=== PATIENT | male | born 1945 | race Caucasian/White ===

== ENCOUNTER → 2017-03-01 | Outpatient (CLI) | payer MEDICARE ==
[~2017-03-01] MED LIST: ASPI1TAB57 PO; BABY81CH PO; IBUP1TAB5 PO; LISI2.5T55 PO; LOSA100T PO; ROSU20 PO; VALA1TAB PO
[2017-03-01 09:06] LABS: HEMATOCRIT 45.8 % (39.0-51.0); MEAN CELL VOLUME 88.1 FL (80.0-100.0); MEAN CORPUSCULAR HEMOGLOBIN 30.9 PG (27.0-34.0); MEAN CORPUSCULAR HGB CONC 35.1 % (32.0-36.0); PLATELET COUNT 248 TH/MM3 (150-450); RED CELL DISTRIBUTION WIDTH 13.4 % (11.6-17.2); REVIEW FLAG FINAL; WHITE BLOOD COUNT 7.5 TH/MM3 (4.0-11.0)
[2017-03-01 09:11] LABS: BLOOD, URINE NEG (NEG); COMMENT (UR) CULT NOT INDICATED; CULTURE IF INDICATED CULT NOT INDICATED; GLUCOSE,URINE NEG (NEG); KETONE, URINE NEG (NEG); NITRITE,URINE NEG (NEG); URINE COLOR LIGHT-YELLOW (YELLW/STRAW)
[2017-03-01 09:18] LABS: APTT (PATIENT) 27.9 SEC (24.3-30.1); INTERNATIONAL NORMALIZED RATIO 0.9 RATIO; PROTHROMBIN TIME - PATIENT 10.2 SEC (9.8-11.6)
[2017-03-01 09:53] LABS: BICARBONATE 27.9 MEQ/L (21.0-32.0)
[2017-03-01 10:00] LABS: POTASSIUM 4.2 MEQ/L (3.5-5.1)
--- NOTE | 2017-03-01 18:00 | EKG ---
Date Performed: 03/01/2017 Time Performed: 08:10:17 PTAGE: 71 years EKG: Sinus rhythm NONSPECIFIC T-WAVE ABNORMALITY BORDERLINE ECG PREVIOUS TRACING : 08/06/2008 08.06 DOCTOR: Juancarlos Simon Interpretating Date/Time 03/01/2017 17:58:07
== END ==
LOC: CPRE 07:36
PROVIDERS: ATTEND Orthopaedic Surgery
DX: Z01.812 Encounter for preprocedural laboratory examination (principal); Z01.810 Encounter for preprocedural cardiovascular examination; M17.12 Unilateral primary osteoarthritis, left knee; M79.609 Pain in unspecified limb; I10 Essential (primary) hypertension
CPT/HCPCS: 36415; 80048; 81001; 85027; 85610; 85730; 93005

== ENCOUNTER 2017-03-25 07:18 | Inpatient (IN) | payer MEDICARE ==
[~2017-03-25] VITALS: Ht 177.8 cm; Wt 93.2 kg
[~2017-03-25 07:18] MED LIST changes: -BABY81CH PO; -LISI2.5T55 PO; -ROSU20 PO; -VALA1TAB PO
[2017-03-25] MEDS ORDERED: INSULIN HUMAN REGULAR 1,000 UNITS/10 ML VIAL SQ PRN ×2 (07:45→08:00)
[2017-03-25] MEDS ORDERED: METOPROLOL TARTRATE 25 MG TAB PO PRN ×2 (07:45→08:00)
[2017-03-25] MEDS ORDERED: SODIUM CHLORID 0.9% 500 ML IV PRN ×2 (07:45→08:00)
[2017-03-25] MEDS ORDERED: POVIDONE IODINE 5% (ANTISEPSIS KIT) 4 APPLICATIONS EACH NARE PRN ×2 (07:45→08:00)
[2017-03-25] MEDS ORDERED: CHLORHEXIDINE GLUCONATE 2 % 1 PACK (2 CLOTHS) TOPICAL PRN ×2 (07:45→08:00)
[2017-03-25] MEDS ORDERED: LACTATED RINGER'S 1000 ML IV PRN ×2 (07:45→08:00)
[2017-03-25] MEDS ORDERED: CHLORHEXIDINE GLUCONATE 4% SOLN 120 ML BTL TOPICAL SCH (08:00)
[2017-03-25] MEDS ORDERED: ceFAZolin 2 GM PREMIX 50 ML IV SCH (08:00)
[2017-03-25] MEDS ORDERED: TRANEXAMIC ACID IV SCH ×5 (08:00→08:30)
[2017-03-25] MEDS ORDERED: SODIUM CHLORIDE 0.9% IV SCH ×5 (08:00→08:30)
[2017-03-25] MEDS ORDERED: EXPAREL PERI-ARTICULAR INJECTION (TOTAL VOL. 100 ML) P-ARTICULR SCH ×2 (08:00)
[2017-03-25] MEDS ORDERED: BUPIVACAINE LIPOSOME PF 1.3% 20 ML VIAL ONE (08:34)
[2017-03-25] MEDS ORDERED: VIAG25TA PO (08:37)
[2017-03-25] MEDS ORDERED: GENTAMICIN SULFATE 80 MG/2 ML VIAL ONE (09:09)
[2017-03-25] MEDS ORDERED: FAMOTIDINE 20 MG/2 ML VIAL ONE (09:33)
[2017-03-25] MEDS ORDERED: ACETAMINOPHEN 1000 MG/100 ML 100 ML IV ONE (09:34)
[2017-03-25] MEDS ORDERED: ZOLPIDEM TARTRATE 5 MG TAB PO PRN (10:00)
[2017-03-25] MEDS ORDERED: ONDANSETRON HCL 4 MG/2 ML VIAL IVP PRN (10:00)
[2017-03-25] MEDS ORDERED: MAGNESIUM HYDROXIDE SUSP 30 ML CUP PO PRN (10:00)
[2017-03-25] MEDS ORDERED: ACETAMINOPHEN/HYDROcodone 325 MG/7.5 MG TAB PO PRN (10:00)
[2017-03-25] MEDS ORDERED: MORPHINE SULFATE 4 MG/ML INJ IV PUSH PRN (10:00)
--- NOTE | 2017-03-25 10:01 | HHI.FF ---
Face to Face Verification Diagnosis: (1) Status post total left knee replacement Physical Therapy Gait training Knee: Total knee, Protocol: Left, Gait training, Full weight bearing Left LE Weight Bearing: WB as tolerated Left LE Range of Motion: Active ROM (AROM, AAROM, PROM. ROM goal is 0 to 135 degrees.) Nursing Nursing: Dressing changes ((Dressing changes start on postop day 7.)) Dressing Changes: Daily dressing change ((Dressing changes start on postop day 7.)), Coverderm/Primapore Additional Instructions Remove steristrips on postop day 14. I have seen patient Dago Lundberg on 03/25/17. My clinical findings support the need for the requested home health care services because: Ltd mobility - disease progression Limited ability to care for self High risk of falls I certify that my clinical findings support that this patient is homebound because: Post-op weakness Unsteady gait/balance Unsafe to leave home unassisted Saurav Peña MD ([place]) Mar 25, 2017 10:01
--- NOTE | 2017-03-25 10:07 | HHI.PR ---
Immediate Post Op Note Procedure Date: Mar 25, 2017 Pre Op Diagnosis: (1) Primary osteoarthritis of left knee Post Op Diagnosis: (1) Primary osteoarthritis of left knee Surgeon: Roman Peña MD Technical Business Analyst(s): JON Gonzales Procedure: Left total knee arthroplasty with Audra Triathlon Prosthesis, uncemented. Findings: OA left knee Complications: 0 Specimen(s) removed: 0 Estimated blood loss: 250 ml. Anesthesia: Regional Block (Adductor canal block) Drains: Hemovac (2) IVF Patient to: PACU Patient Condition: Good Implant/Devices: SEE IMPLANT LOG (if applicable) Date/Time of Procedure: SEE SURGICAL CARE RECORD Saurav Peña MD ([place]) Mar 25, 2017 10:07
[2017-03-25] MEDS: TRANEXAMIC ACID INJ 930 MG in SODIUM CHLORIDE 0.9% INJ 100 ML IV SCH ×2 (11:35→14:24)
[2017-03-25] MEDS ORDERED: HYDR-3580 PO (12:52)
[2017-03-25] MEDS ORDERED: ECASA81 PO (12:52)
[2017-03-25] MEDS ORDERED: DO NOT ADM ANY ANTICOAGULANT DRUGS PRN (12:53)
[2017-03-25] MEDS ORDERED: Post-op Orders (for Pharmacy) MISC XX ONE (13:00)
[2017-03-25] MEDS: LACTATED RINGER'S 1000 ML INJ 1,000 ML IV SCH (14:24)
[2017-03-25] MEDS: KETOROLAC TROMETHAMINE 30 MG/ML (IVP) VIAL IVP SCH ×3 (14:27→22:21)
--- NOTE | 2017-03-25 14:45 | RADRPT ---
EXAM DATE/TIME: 03/25/2017 13:10 [place] COMPARISON: No previous studies available for comparison. INDICATIONS : Post op left knee surgery. MEDICAL HISTORY : none known SURGICAL HISTORY : none known ENCOUNTER: Initial ACUITY: 1 day PAIN SCORE: 0/10 LOCATION: Left knee FINDINGS: AP and lateral views of the left knee demonstrate changes consistent with recent total knee arthropla sty with metallic hardware in place in the distal femur and proximal tibia. There is a metallic bermudez lar component. There is soft tissue gas present, as expected. A surgical drain is in place. CONCLUSION: Expected changes following recent left total knee arthroplasty. Stan Jones MD on March 25, 2017 at 14:33 Board Certified Radiologist. This report was verified electronically.
--- NOTE | 2017-03-25 14:48 | PD.CONS ---
HPI Service [facility] Hospitalists Consult Requested By Primary Care Physician Sander Pineda MD Diagnoses: History of Present Illness Mr. Lundberg is a 71 year old male. He is here in the hospital related to having a left total knee arthroplasty earlier today. I am seeing him post op and he is doing well thus far. He has HTN at baseline and Osteoarthritis. No other medical conditions reported. Review of Systems Constitutional: DENIES: Fatigue, Fever, Chills Eyes: DENIES: Diplopia, Eye inflammation, Eye pain Ears, nose, mouth, throat: DENIES: Hearing loss, Vertigo, Nasal discharge Respiratory: DENIES: Cough, Wheezing, Shortness of breath Cardiovascular: DENIES: Chest pain, Palpitations, Syncope Gastrointestinal: DENIES: Abdominal pain, Black stools, Bloody stools Musculoskeletal: COMPLAINS OF: Joint pain, Stiffness, DENIES: Muscle aches Integumentary: DENIES: Abnormal pigmentation, Nail changes, Pruritus, Rash Hematologic/lymphatic: DENIES: Bruising, Lymphadenopathy Immunologic/allergic: DENIES: Eczema, Urticaria Neurologic: DENIES: Abnormal gait, Headache, Paresthesias Psychiatric: DENIES: Anxiety, Confusion, Hallucinations Past Family Social History Allergies: Coded Allergies: No Known Allergies (Verified Allergy, Unknown, 03/25/17) Past Medical History HTN OA ED Past Surgical History Hemorrhoid Surgery Reported Medications Reported Meds & Active Scripts Active Hydrocodone-Acetamin 7.5-325 (Hydrocodone/Acetaminophen) 7.5 Mg-325 Mg Tablet 1 Tab PO Q4H PRN Reported Viagra (Sildenafil Citrate) 25 Mg Tab Unknown Dose PO DIRECTED PRN Ibuprofen 400 Mg Tab 400 Mg PO Q4H PRN Losartan (Losartan Potassium) 100 Mg Tab 100 Mg PO DAILY Aspirin 81 (Aspirin) 81 Mg Tabdr 81 Mg PO DAILY Active Ordered Medications Administered Medications Medications (Trade) Dose Ordered Sig/Carlos Route PRN Reason Start Time Stop Time Status Last Admin Dose Admin Lactated Ringer's 1,000 ml @ 30 mls/hr Q24H PRN IV SEE LABEL COMMENTS 03/25/17 07:45 03/28/17 07:44 03/25/17 08:45 Povidone Iodine (Betadine 5% Antisepsis Kit) 1 applic MEDICAL SURGICAL TECH PRN EACH NARE SEE LABEL COMMENTS 03/25/17 07:45 03/28/17 07:44 03/25/17 08:44 Chlorhexidine Gluconate (Chlorhexidine 2% Cloth) 3 pack MEDICAL SURGICAL TECH PRN TOPICAL SEE LABEL COMMENTS 03/25/17 07:45 03/28/17 07:44 03/25/17 07:30 Chlorhexidine Gluconate (Hibiclens 4% Top Soln) 1 applic ONCE TOPICAL 03/25/17 08:00 03/28/17 07:59 03/25/17 08:44 Cefazolin Sodium/ Dextrose 50 ml @ 100 mls/hr MEDICAL SURGICAL TECH IV 03/25/17 08:00 03/28/17 07:59 03/25/17 11:34 Bupivacaine Liposome 20 ml/ Sodium Chloride 100 ml @ 200 mls/hr ONCE P-ARTICULR 03/25/17 08:00 03/26/17 07:59 03/25/17 11:36 Lactated Ringer's 1,000 ml @ 80 mls/hr [id number] IV 03/25/17 09:54 03/25/17 14:24 Ketorolac Tromethamine (Toradol Inj) 15 mg Q6H IVP 03/25/17 10:00 03/27/17 04:01 03/25/17 14:27 Tranexamic Acid 930 mg/Sodium Chloride 109.3 ml @ 200 mls/hr UNSCH IV 03/25/17 10:00 03/25/17 16:00 03/25/17 14:24 Family History CVA and CAD in father COPD in mother Social History Occasional Alcohol use No nicotine use No illicit drug abuse Physical Exam Vital Signs Vital Signs Date Time Temp Pulse Resp B/P (MAP) Pulse Ox O2 Delivery O2 Flow Rate FiO2 03/25/17 14:30 65 14 156/83 (107) 99 Nasal Cannula 2 03/25/17 14:00 97.6 60 13 149/86 (107) 98 Nasal Cannula 2 03/25/17 13:45 66 18 150/89 (109) 100 Nasal Cannula 2 03/25/17 13:30 64 17 144/92 (109) 99 Nasal Cannula 2 03/25/17 13:15 63 12 146/86 (106) 99 Nasal Cannula 2 03/25/17 13:00 75 13 148/87 (107) 96 Nasal Cannula 2 03/25/17 12:55 97.5 77 20 157/91 (113) 98 Nasal Cannula 2 03/25/17 08:39 97.9 66 20 180/99 (509) 98 Physical Exam GENERAL: NAD, A&Ox3 HEAD: Normocephalic. NECK: Supple, trachea midline. No lymphadenopathy. EYES: No scleral icterus. No injection or drainage. CARDIOVASCULAR: Regular rate and rhythm without murmurs, gallops, or rubs. RESPIRATORY: Breath sounds equal bilaterally. No accessory muscle use. GASTROINTESTINAL: Abdomen soft, non-tender, nondistended. MUSCULOSKELETAL: No cyanosis, or edema. Left knee bandaged and in mobilizer. SKIN: Warm and dry. NEURO: No focal neurological deficitis. Assessment and Plan Problem List: (1) Primary osteoarthritis of left knee ICD Code: M17.12 - Unilateral primary osteoarthritis, left knee (2) Status post total left knee replacement ICD Code: Z96.652 - Presence of left artificial knee joint Assessment and Plan Assessment and Plan 71 year old male admitted for a left knee total arthroplasty Status post left knee replacement Osteoarthritis PRN pain treatments Ortho following PT planned Follow CBC HTN Resume baseline treatments Follow BP Adjust if needed Steve Ybarra MD Mar 25, 2017 14:48
[2017-03-25 15:15] VITALS: BP 151/79; PULSE 67; RESP 17; TEMP 96; O2SAT 94
--- NOTE | 2017-03-25 16:35 | MP ---
cc: Kimberli CANTOR. DATE OF SURGERY 03/25/2017 PREOPERATIVE DIAGNOSIS Primary osteoarthritis left knee. POSTOPERATIVE DIAGNOSIS Primary osteoarthritis left knee. OPERATION PERFORMED Left total knee arthroplasty with Pony Triathlon prosthesis (uncemented). SURGEON Annita Cantor MD ANESTHESIA Spinal with supplemental adductor canal block and local. INDICATIONS AND FINDINGS This 71-year-old man has a 7-month history of progressively worsening left knee pain in spite of nonsurgical treatment. His activities of daily living including position changes and standing from a seated position, ascending and descending stairs and the like and have become more painful and more difficult. This is in spite of the use of nonsteroidal anti-inflammatory agents, analgesics, activity modification exercises, intra-articular corticosteroid injections and ambulatory aids. Physical findings show genu varum with some limitation of motion, crepitation on motion and tenderness, some laxity in the medial compartment. X-rays show loss of articular cartilage to virtually [id number] with subchondral sclerosis and osteophytes. Operative findings are consistent with the radiographic findings with loss of articular cartilage to exposed subchondral bone in the medial compartment, somewhat less in the patellofemoral and lateral compartments. Osteophytes were noted. The prosthesis used was a Audra Triathlon prosthesis with the femur being a size 7 left uncemented, the tibia being a titanium baseplate size 7 with a 9 mm cruciate-retaining spacer of x-ray polyethylene. The patella was a size 38 mm asymmetric tritanium backed patella. PROCEDURE The patient was brought to the operating room and a regional anesthetic was administered using an adductor canal block followed by a spinal anesthetic. He was then placed in the supine position on the operating table in the clean-air operating room. He received prophylactic antibiotic in the form of Ancef and also received tranexamic acid. The knee was then prepped with alcohol, Hibiclens and Chloraprep and draped in the usual manner with the knee draped free. An appropriate time-out procedure was carried out. An incision was made from about three fingerbreadths above the superior medial pole of patella down to the tibial tubercle on the medial side. The incision was deepened through subcutaneous tissues to the retinacular structures which were exposed medially and laterally. A medial retinacular incision was made from the superior and middle pole of patella down to the tibia tubercle and up into the quadriceps tendon splitting it longitudinally in the medial one-third. Patella was reflected. The infrapatellar fat pad was debulked. Medial and lateral dissection was carried out. Fenestrations were made in the distal femur and proximal tibia for intramedullary referencing guides. The distal femoral cutting guide and jig were assembled for a 5 degrees 8-mm cut. This was then stabilized with pins. The jig was removed. The distal femoral cut was completed with the oscillating saw. A sizing guide was then positioned on the femur. the above-noted size for the femur. A 4-in-1 cutting block was positioned in place. Anterior and posterior cuts were made followed by posterior and anterior chamfer cuts. Osteophytes were trimmed. Medial and lateral meniscectomies were completed as was the resection of anterior cruciate ligament. The proximal tibial cutting guide and jig were then positioned in place and assembled in the appropriate position. This was stabilized for rotation with a pin. The proximal tibial cutting guide was stabilized and depth of cut verified with a stylus. The proximal tibial cut was then completed with the oscillating saw after making appropriate adjustments. The spacer block was then used to determine that this was an adequate and appropriate cut. The cutting blocks were removed. Exparel was injected about the posterior aspect of the knee. Medial and lateral meniscectomies were completed. The tibial baseplate trial was positioned in place for a size 7 tibia. The femoral component trial was positioned in place. The knee was taken through a range of motion and positioning of the tibia was carried out and stabilized with pins. The patella drill guide was positioned and drill holes made for the patella. A size 38 mm asymmetric patella trial was positioned into place. The knee was taken through a range of motion which was easily 0 degrees extension to 145 degrees of flexion. Stability was excellent in both positions. The femoral drill holes were made. The patella and femoral trials were removed. The tibial bone plug and femoral bone plugs were placed. The tibial punch was impacted through its guide. The tibial drill guide was positioned in place and drill holes made. After removal of the instruments, the knee was irrigated well with lactated Ringer's solution. The tibial component was impacted into place and seated appropriately, followed by the spacer. The femoral component was then impacted into place. The patella was positioned in place and seated appropriately with the patella vice. The knee was taken through a range of motion which was easily 0 degrees extension to 145 degrees of flexion. Drains were brought out the superolateral aspect of the suprapatellar pouch. The remainder of the Exparel was injected throughout the knee. The knee was then closed in layers using 0 Vicryl interrupted [id number] suture for retinacular and capsular structures, 2-0 Vicryl interrupted simple sutures with buried knots for the subcutaneous tissues and 3-0 Monocryl barbed suture for the skin. The wound was then dressed with Steri-Strips followed by an Optifoam silver impregnated dressing, sterile Sof-Rol, cooling pad and Enoch bandages. The patient was transferred from the operating room to the recovery room in satisfactory position having tolerated the procedure well. Counts were correct. Specimens none. Estimated blood loss 250 mL. MD SYEDA Lance/ANUP /12:53 PM /4:08 PM
--- NOTE | 2017-03-25 18:06 | HHI.PR ---
Subjective Remarks NOT SEEN Objective Vitals Vital Signs Date Time Temp Pulse Resp B/P (MAP) Pulse Ox O2 Delivery O2 Flow Rate FiO2 03/25/17 16:00 20 03/25/17 15:15 96.0 67 17 151/79 (103) 94 03/25/17 15:07 Room Air 03/25/17 14:55 59 17 158/90 (112) 99 Room Air 03/25/17 14:30 65 14 156/83 (107) 99 Nasal Cannula 2 03/25/17 14:00 97.6 60 13 149/86 (107) 98 Nasal Cannula 2 03/25/17 13:45 66 18 150/89 (109) 100 Nasal Cannula 2 03/25/17 13:30 64 17 144/92 (109) 99 Nasal Cannula 2 03/25/17 13:15 63 12 146/86 (106) 99 Nasal Cannula 2 03/25/17 13:00 75 13 148/87 (107) 96 Nasal Cannula 2 03/25/17 12:55 97.5 77 20 157/91 (113) 98 Nasal Cannula 2 03/25/17 08:39 97.9 66 20 180/99 (126) 98 I/O 03/24/17 03/24/17 03/24/17 03/25/17 03/25/17 03/25/17 07:00 15:00 23:00 07:00 15:00 23:00 Intake Total 1529 ml Output Total 300 ml Balance 1229 ml Intake Oral 20 ml IV Total 109 ml Other 1400 ml Output Drainage Total 100 ml Estimated Blood Loss 200 ml Imaging Last Impressions Knee X-Ray 03/25/17 0954 Signed Impressions: Service Date/Time: Saturday, March 25, 2017 13:10 - CONCLUSION: Expected changes following recent left total knee arthroplasty. Stan Jones MD Objective Remarks GENERAL: NAD, A&Ox3 HEAD: Normocephalic. NECK: Supple, trachea midline. No lymphadenopathy. EYES: No scleral icterus. No injection or drainage. CARDIOVASCULAR: Regular rate and rhythm without murmurs, gallops, or rubs. RESPIRATORY: Breath sounds equal bilaterally. No accessory muscle use. GASTROINTESTINAL: Abdomen soft, non-tender, nondistended. MUSCULOSKELETAL: No cyanosis, or edema. Left knee bandaged and in mobilizer. SKIN: Warm and dry. NEURO: No focal neurological deficitis. A/P Problem List: (1) Primary osteoarthritis of left knee ICD Code: M17.12 - Unilateral primary osteoarthritis, left knee (2) Status post total left knee replacement ICD Code: Z96.652 - Presence of left artificial knee joint Assessment and Plan 71 year old male admitted for a left knee total arthroplasty Status post left knee replacement Osteoarthritis PRN pain treatments Ortho following PT planned Follow CBC HTN Resume baseline treatments Follow BP Adjust if needed Malcolm Michael MD Mar 25, 2017 18:06
[2017-03-25 20:50] VITALS: BP 137/79; PULSE 89; RESP 17; TEMP 97.8; O2SAT 94
[2017-03-26 00:25] VITALS: BP 158/87; PULSE 80; RESP 16; TEMP 97.6; O2SAT 97
[2017-03-26] MEDS: KETOROLAC TROMETHAMINE 30 MG/ML (IVP) VIAL IVP SCH ×2 (03:29→09:53)
[2017-03-26 04:00] VITALS: BP 153/75; PULSE 89; RESP 17; TEMP 98.1; O2SAT 99
[2017-03-26 05:48] LABS: HEMATOCRIT 37.6 % (39.0-51.0); MEAN CELL VOLUME 88.6 FL (80.0-100.0); MEAN CORPUSCULAR HEMOGLOBIN 30.1 PG (27.0-34.0); PLATELET COUNT 223 TH/MM3 (150-450); RED BLOOD COUNT 4.24 MIL/MM3 (4.50-5.90); RED CELL DISTRIBUTION WIDTH 13.5 % (11.6-17.2); REVIEW FLAG FINAL; WHITE BLOOD COUNT 11.9 TH/MM3 (4.0-11.0)
[2017-03-26 06:13] LABS: BICARBONATE 28.1 MEQ/L (21.0-32.0)
[2017-03-26 07:37] VITALS: BP 152/77; PULSE 78; RESP 18; TEMP 97.8; O2SAT 97
--- NOTE | 2017-03-26 08:07 | PD.ORT.PN ---
Subjective Post Op Day #: 1 Subjective Remarks He is doing well. He indicates that his pain level is the same as it was preoperatively. He is very encouraged by this. He is able to walk without much difficulty. Range of Motion -8 to 95 degrees. Distance Walked 80 feet with PT. Objective Vitals Vital Signs Date Time Temp Pulse Resp B/P (MAP) Pulse Ox O2 Delivery O2 Flow Rate FiO2 03/26/17 07:37 97.8 78 18 152/77 (102) 97 03/26/17 04:00 98.1 89 17 153/75 (101) 99 03/26/17 00:25 97.6 80 16 158/87 (110) 97 03/25/17 20:50 97.8 89 17 137/79 (98) 94 03/25/17 16:00 20 03/25/17 15:15 96.0 67 17 151/79 (103) 94 03/25/17 15:07 Room Air 03/25/17 14:55 59 17 158/90 (112) 99 Room Air 03/25/17 14:30 65 14 156/83 (107) 99 Nasal Cannula 2 03/25/17 14:00 97.6 60 13 149/86 (107) 98 Nasal Cannula 2 03/25/17 13:45 66 18 150/89 (109) 100 Nasal Cannula 2 03/25/17 13:30 64 17 144/92 (109) 99 Nasal Cannula 2 03/25/17 13:15 63 12 146/86 (106) 99 Nasal Cannula 2 03/25/17 13:00 75 13 148/87 (107) 96 Nasal Cannula 2 03/25/17 12:55 97.5 77 20 157/91 (113) 98 Nasal Cannula 2 03/25/17 08:39 97.9 66 20 180/99 (126) 98 I/O 03/25/17 03/25/17 03/25/17 03/26/17 03/26/17 03/26/17 07:00 15:00 23:00 07:00 15:00 23:00 Intake Total 1529 ml 822 ml 460 ml Output Total 300 ml 160 ml 110 ml Balance 1229 ml 662 ml 350 ml Intake Oral 20 ml 360 ml 360 ml IV Total 109 ml 462 ml 100 ml Other 1400 ml Output Drainage Total 100 ml 160 ml 110 ml Estimated Blood Loss 200 ml # Voids 1 1 # Bowel Movements 0 0 Result Diagram: 03/26/17 0455 03/26/17 0455 Imaging Last 24 hours Impressions Knee X-Ray 03/25/17 0954 Signed Impressions: Service Date/Time: Saturday, March 25, 2017 13:10 - CONCLUSION: Expected changes following recent left total knee arthroplasty. Stan Jones MD Objective Remarks He is sitting out of bed in the chair. The dressing is dry and intact. The neurovascular status is intact. There is not much drainage. Assessment & Plan Ortho Post Op Day #: 1 Problem List: (1) Status post total left knee replacement ICD Codes: Z96.652 - Presence of left artificial knee joint Plan: Continue postop care and PT. I have discussed with him and his the operative findings and the procedure carried out. We have discussed post hospital care. Assessment and Plan Condition: Good. Orthopedically stable. DVT prophylaxis: TEDs, aspirin, sequentials. Discharge plans: Home with home health care. An appointment was scheduled through the office. Prescriptions: [place] 7.5/325. Saurav Peña MD ([place]) Mar 26, 2017 08:07
[2017-03-26] MEDS ORDERED: LOSARTAN 50 MG TAB PO SCH (09:00)
[2017-03-26] MEDS: LACTATED RINGER'S 1000 ML INJ 1,000 ML IV SCH (09:54)
[2017-03-26] MEDS: ACETAMINOPHEN/HYDROcodone 325 MG/7.5 MG TAB PO PRN ×2 (10:03→13:38)
--- NOTE | 2017-03-26 10:07 | HHI.DS ---
Discharge Summary Admission Date Mar 25, 2017 at 07:18 Admitting Diagnosis Primary osteoarthritis, left knee. Diagnosis: (1) Status post total left knee replacement Diagnosis: Principal ICD Codes: Z96.652 - Presence of left artificial knee joint Procedures Left total knee arthroplasty with Striker Triathlon prosthesis, uncemented, 03/25 Brief History This is a 71 year old male patientwas admitted electively for a left total knee arthroplasty. His left knee has been giving him difficulty for an extended period time as detailed in the history and physical examination. He has tried nonsteroidal anti-inflammatory agents, analgesics, intra-articular corticosteroidsand external supports without much improvement. Physical findings showed significant laxity in the medial compartment with crepitation on motion and tenderness. X-rays showed loss of articular cartilage to bone on bone in the medial compartment with osteophytes in the medial, lateral and patellofemoral compartments. CBC/BMP: 03/26/17 0455 03/26/17 0455 Significant Findings Laboratory Tests Test 03/26/17 04:55 White Blood Count 11.9 TH/MM3 (4.0-11.0) Red Blood Count 4.24 MIL/MM3 (4.50-5.90) Hemoglobin 12.8 GM/DL (13.0-17.0) Hematocrit 37.6 % (39.0-51.0) Mean Platelet Volume 6.5 FL (7.0-11.0) Random Glucose 107 MG/DL (74-106) Calcium Level 8.2 MG/DL (8.5-10.1) Estimat Glomerular Filtration Rate 78 ML/MIN (>89) PE at Discharge He is sitting out of bed in the chair. The dressing is dry and intact. The neurovascular status is intact. There is not much drainage. Hospital Course The patient was admitted to the hospital on the above-noted date and had a left total knee arthroplasty carried out as detailed above. He tolerated the procedure well. He received prophylactic antibiotics in the form of Ancef preoperatively according to protocols and continued according to the protocols for the next day. He was placed into a continuous passive motion device in the postanesthesia care unit. He started physical therapy on the day of surgery.He was able to ambulate 80 feet without any difficulty with physical therapy.His range of motion is -8-95. Postoperative pain was consistent with his preoperative pain. Pt Condition on Discharge: Good Discharge Disposition: Disch w/ Home Health Serv Discharge Instructions Diet Instructions: As Tolerated, No Restrictions Activities You Can Perform: Full Weight Bearing, Shower/Bath Activities to Avoid: Lifting/Bending, Strenuous Activity, Bathing, Driving Follow up Referrals: Orthopedics with Saurav Peña MD ([place]) New Medications: Aspirin (Aspirin DR) 81 Mg Tabdr 81 MG PO BID for Prevent Blood Clot for 12 Days, #24 TAB Hydrocodone/Acetaminophen (Hydrocodone-Acetamin 7.5-325) 7.5 Mg-325 Mg Tablet 1 TAB PO Q4H PRN for PAIN SCALE 1 TO 10, #50 TAB Continued Medications: Ibuprofen (Ibuprofen) 400 Mg Tab 400 MG PO Q4H PRN for PAIN SCALE 1 TO 10, TAB 0 Refills Losartan (Losartan) 100 Mg Tab 100 MG PO DAILY for Blood Pressure Management, #30 TAB 0 Refills Sildenafil (Viagra) 25 Mg Tab Unknown Dose PO DIRECTED PRN for ERECTILE DYSFUNCTION, TAB 0 Refills Discontinued Medications: Aspirin (Aspirin 81) 81 Mg Tabdr 81 MG PO DAILY, TAB 0 Refills Saurav Peña MD ([place]) Mar 26, 2017 10:07
--- NOTE | 2017-03-26 11:53 | HHI.PR ---
Subjective Remarks Follow-up hypertension. Patient is doing well being discharged today. Lab results discussed with the patient including leukocytosis, anemia and hyperglycemia. Discussed with RN Objective Vitals Vital Signs Date Time Temp Pulse Resp B/P (MAP) Pulse Ox O2 Delivery O2 Flow Rate FiO2 03/26/17 07:37 97.8 78 18 152/77 (102) 97 03/26/17 04:00 98.1 89 17 153/75 (101) 99 03/26/17 00:25 97.6 80 16 158/87 (110) 97 03/25/17 20:50 97.8 89 17 137/79 (98) 94 03/25/17 16:00 20 03/25/17 15:15 96.0 67 17 151/79 (103) 94 03/25/17 15:07 Room Air 03/25/17 14:55 59 17 158/90 (112) 99 Room Air 03/25/17 14:30 65 14 156/83 (107) 99 Nasal Cannula 2 03/25/17 14:00 97.6 60 13 149/86 (107) 98 Nasal Cannula 2 03/25/17 13:45 66 18 150/89 (109) 100 Nasal Cannula 2 03/25/17 13:30 64 17 144/92 (109) 99 Nasal Cannula 2 03/25/17 13:15 63 12 146/86 (106) 99 Nasal Cannula 2 03/25/17 13:00 75 13 148/87 (107) 96 Nasal Cannula 2 03/25/17 12:55 97.5 77 20 157/91 (113) 98 Nasal Cannula 2 I/O 03/25/17 03/25/17 03/25/17 03/26/17 03/26/17 03/26/17 07:00 15:00 23:00 07:00 15:00 23:00 Intake Total 1529 ml 822 ml 460 ml Output Total 300 ml 160 ml 110 ml Balance 1229 ml 662 ml 350 ml Intake Oral 20 ml 360 ml 360 ml IV Total 109 ml 462 ml 100 ml Other 1400 ml Output Drainage Total 100 ml 160 ml 110 ml Estimated Blood Loss 200 ml # Voids 1 1 # Bowel Movements 0 0 Result Diagram: 03/26/17 0455 03/26/17 0455 Imaging Last Impressions Knee X-Ray 03/25/17 3804 Signed Impressions: Service Date/Time: Saturday, March 25, 2017 13:10 - CONCLUSION: Expected changes following recent left total knee arthroplasty. Stan Jones MD Objective Remarks GENERAL: NAD, A&Ox3 HEAD: Normocephalic. NECK: Supple, trachea midline. No lymphadenopathy. EYES: No scleral icterus. No injection or drainage. CARDIOVASCULAR: Regular rate and rhythm without murmurs, gallops, or rubs. RESPIRATORY: Breath sounds equal bilaterally. No accessory muscle use. GASTROINTESTINAL: Abdomen soft, non-tender, nondistended. MUSCULOSKELETAL: No cyanosis, or edema. Left knee bandaged and in mobilizer. SKIN: Warm and dry. NEURO: No focal neurological deficits. A/P Problem List: (1) Primary osteoarthritis of left knee ICD Code: M17.12 - Unilateral primary osteoarthritis, left knee (2) Status post total left knee replacement ICD Code: Z96.652 - Presence of left artificial knee joint Assessment and Plan 71 year old male admitted for a left knee total arthroplasty Status post left knee replacement Osteoarthritis PRN pain treatments Ortho following PT planned Follow CBC HTN Resume baseline treatments which is losartan Follow BP Adjust if needed Leukocytosis likely reactive. No evidence of infection. Monitor Anemia secondary to acute blood loss. Hemodynamically stable. Monitor Hyperglycemia likely reactive. Outpatient follow-up Discharge Planning Stable for discharge Malcolm Michael MD Mar 26, 2017 11:53
[2017-03-26 12:00] VITALS: BP 136/64; PULSE 80; RESP 18; TEMP 97.7; O2SAT 96
[2017-03-26] MEDS ORDERED: ASPIRIN EC 81 MG TABEC PO SCH (12:00)
[2017-03-26] MEDS ORDERED: DOCUSATE SODIUM 100 MG CAP PO SCH (21:00)
== END 2017-03-26 13:43 | disposition home health service (06) | DRG 470 ==
LOC: HSDI 07:18 → N06A 15:07
PROVIDERS: ADMIT Orthopaedic Surgery; ATTEND Orthopaedic Surgery
PROC: 3E0T3BZ Introduction of Anesthetic Agent into Peripheral Nerves and Plexi, Percutaneous Approach (ICD-10-PCS; 2017-03-25)
PROC: 0SRD0JA Replacement of Left Knee Joint with Synthetic Substitute, Uncemented, Open Approach (ICD-10-PCS; principal; 2017-03-25 10:00)
DX: M17.12 Unilateral primary osteoarthritis, left knee (principal); D62 Acute posthemorrhagic anemia; I10 Essential (primary) hypertension; M21.162 Varus deformity, not elsewhere classified, left knee; D72.829 Elevated white blood cell count, unspecified; R73.9 Hyperglycemia, unspecified
CPT/HCPCS: 73560; 80048; 85027; 86850; 86900; 86901; C1776; C9290; J0131; J0690; J1580; J1885; J7120